=== PATIENT | female | born 1995 | race Two or more races ===

== ENCOUNTER 2022-04-21 18:54 | Emergency (ER) | payer OTHER ==
[~2022-04-21] VITALS: Ht 167.6 cm; Wt 88.5 kg
== END 2022-04-21 22:58 | disposition home or self-care (01) ==
LOC: ER 18:54
DX: M25.572 Pain in left ankle and joints of left foot (principal)

== ENCOUNTER 2022-06-16 10:05 | Emergency (ER) | payer OTHER ==
[~2022-06-16] VITALS: Ht 160 cm; Wt 83.9 kg
[2022-06-16] MEDS ORDERED: OMEPRAZOLE MAGN20 MG PO (15:19)
[2022-06-16] MEDS ORDERED: METRONIDAZOLE500 MG PO (15:19)
[2022-06-16] MEDS ORDERED: CIPRO500 MG PO (15:19)
[2022-06-16] MEDS ORDERED: PEPCID AC20 MG PO (15:19)
== END 2022-06-16 15:24 | disposition home or self-care (01) ==
LOC: EMR PED 10:05 → ER 10:09 → EMR PED 10:09 → ER 15:24
DX: K51.00 Ulcerative (chronic) pancolitis without complications (principal); Z20.822 Contact with and (suspected) exposure to COVID-19

== ENCOUNTER 2022-12-10 23:17 | Emergency (ER) | payer OTHER ==
[~2022-12-10] VITALS: Ht 160 cm; Wt 86.2 kg
[~2022-12-10 23:17] MED LIST: CIPRO500 MG PO; METRONIDAZOLE500 MG PO; OMEPRAZOLE MAGN20 MG PO; PEPCID AC20 MG PO
[2022-12-11] MEDS ORDERED: BETAMETHASONE D15 G2 TOP (04:11)
[2022-12-11] MEDS ORDERED: MEDROL8 MG PO (04:11)
== END 2022-12-11 04:19 ==
LOC: ER
DX: R21 Rash and other nonspecific skin eruption (principal)

== ENCOUNTER 2023-11-23 14:45 | Emergency (ER) | payer OTHER ==
[~2023-11-23] VITALS: Ht 160 cm; Wt 90.3 kg
[~2023-11-23 14:45] MED LIST changes: +BETAMETHASONE D15 G2 TOP; +MEDROL8 MG PO
== END 2023-11-23 17:11 | disposition home or self-care (01) ==
LOC: ER 14:46
DX: R10.31 Right lower quadrant pain (principal); R10.83 Colic